=== PATIENT | male | born 1995 ===

== ENCOUNTER 2019-10-30 07:57 | Inpatient (IN) | payer OTHER ==
[~2019-10-30] VITALS: Ht 172.7 cm; Wt 65.7 kg
[2019-10-30] VITALS (447 sets, daily range): BP systolic 92–150; BP diastolic 56–119; PULSE 64–138; TEMP 97.2–98.6; O2SAT 79–100
[2019-10-30 08:21] LABS: COLLECTION METHOD IN
[2019-10-30 08:26] LABS: BASO # 0.1 (0.0-0.2); BASO % 0.5 % (0.0-2.0); GRAN # 10.5 (1.4-6.5); GRAN % 87.7 % (42.2-75.2); HEMATOCRIT 47.8 % (42.0-52.0); HEMOGLOBIN 16.2 g/dl (13.5-18.0); LYMPH # 0.9 (1.2-3.4); LYMPH % 7.7 % (20.0-51.0); MEAN CELL VOLUME 88 fl (80.0-100.0); MEAN CORPUSCULAR HEMOGLOBIN 30 pg (27.0-31.0); MEAN CORPUSCULAR HGB CONC 34 g/dl (33.0-37.0); MONO # 0.4 (0.1-0.6); MONO % 3.7 % (1.7-9.3); PLATELET COUNT 286 K/mm3 (130-400); RED BLOOD COUNT 5.43 M/mm3 (4.20-5.60); REDCELL DISTRIBUTION WIDTH-CV 12.2 % (11.5-14.5)
[2019-10-30 08:30] LABS: ALANINE AMINOTRANSFERASE 35 U/L (21-72); ALBUMIN 4.3 gm/dL (3.5-5.0); ALKALINE PHOSPHATASE 70 U/L (50-136); ANION GAP 13 mmol/L (7-16); AST,SGOT 16 U/L (15-37); BILIRUBIN,TOTAL 0.5 mg/dL (0.0-1.0); BLOOD UREA NITROGEN 13 mg/dL (9-20); CALCIUM 8.1 mg/dL (8.4-10.2); CARBON DIOXIDE 21 mmol/L (22-30); CHLORIDE 109 mmol/L (98-107); CREATININE, serum 0.98 (0.66-1.25); GLUCOSE 182 mg/dL (74-106); POTASSIUM 3.3 mmol/L (3.4-5.0); SODIUM 143 mmol/L (137-145)
[2019-10-30 08:31] LABS: ACETAMINOPHEN < 10 ug/mL (10-30); ALCOHOL(ethanol),MEDICAL < 10 mg/dL; SALICYLATE < 1.0 mg/dL
[2019-10-30 08:40] LABS: MUCOUS Present /lpf; PH 6 (5-8); SQUAMOUS EPITHELIAL None Seen /hpf; URINE APPEARANCE Hazy; URINE BACTERIA None Seen /hpf; URINE BILIRUBIN Negative (NEGATIVE); URINE BLOOD 1+ (NEGATIVE); URINE COLOR Yellow; URINE GLUCOSE Negative (NEGATIVE); URINE KETONE Trace (NEGATIVE); URINE LEUKOCYTE ESTERASE Negative (NEGATIVE); URINE NITRATE Negative (NEGATIVE); URINE PROTEIN(semi-quant) Negative (NEGATIVE); URINE UROBILINOGEN Negative (NEGATIVE)
[2019-10-30 09:00] LABS: TRICYCLIC ANTIDEPRESS URINE NEGATIVE
[2019-10-30 09:01] LABS: ARTERIAL BLD GAS O2 SATURATION 98.1 % (92-100); ARTERIAL BLD GAS TCO2 CT 20.9; ARTERIAL BLOOD GAS HCO3 19.9 meq/L (22-26); ARTERIAL BLOOD GAS PCO2 30.7 mmHg (35-45); ARTERIAL BLOOD GAS PO2 98.5 mmHg (80-100); ARTERIAL BLOOD GAS pH 7.43 (7.35-7.45)
--- NOTE | 2019-10-30 09:30 | NUR ---
Patient arrives from ED at this time. He has his eyes open but does not communicate with staff or track them with his eyes. He is not following commands. He is restless, picking at everything and nothing. Will continue to monitor.
--- NOTE | 2019-10-30 13:00 | NUR ---
Patient is more restless as the day progresses. Officer at bedside to assist in keeping patient in bed. He tries to get out of bed, pulls on lines and monitor cords and throws blankets off. He is reminded to lie back and try to sleep. He then lies down and is still for a couple minutes, only to become restless again. Will continue to monitor.
--- NOTE | 2019-10-30 17:25 | NUR ---
DR. SANCHES CALLED D/T INCREASED AGITATION. PATIENT CRAWLING OUT OF BED. PULLING AT LINES AND MONITOR WIRES. HE IS NOT FOLLOWING DIRECTION AND SWINGS OUT AT STAFF WHEN WE TRY TO HELP HIM BACK TO BED. RECENTLY GIVEN ATIVAN WITH NO HELP IN AGITATION. SHE GIVES ORDER FOR PRECEDEX, ICU STATUS, AND CONSULT DR. SARAVIA.
--- NOTE | 2019-10-30 18:27 | NUR ---
PATIENT IS RESTING COMFORTABLY AT AT THIS TIME. HE IS ON VERY LOW DOSE OF PRECEDEX. VS STABLE. RCPD OFFICER AT BEDSIDE.
--- NOTE | 2019-10-30 19:14 | NUR ---
REPORT GIVEN TO DIONISIO CHAWLA. PATIENT LYING IN BED WITH MITTS ON. RCPD OFFICER AT BEDSIDE. ALL LINES AND GTTS REVIEWED. CARE TURNED OVER AT THIS TIME.
--- NOTE | 2019-10-30 19:15 | NUR ---
Received report from DIONISIO Colon.
--- NOTE | 2019-10-30 23:30 | NUR ---
Patient became more alert following 1999 assessment. Patient was opening eyes spontaneously, followed commands, however, speech was still confused and slurred. Patient increasingly became more restless, evidenced by attempts to bite off mits and trying to sit up and scoot to the edge of bed. Began titrating precedex per orders at 2029. By 2229, patient's precedex was titrated to 0.7 mcg/kg/hr or 11.5 mL/hr. Patient is currently lightly sedated and resting quietly in bed. Vitals remain within normal limits. Will continue to monitor.
[2019-10-31] VITALS (875 sets, daily range): BP systolic 101–127; BP diastolic 61–90; PULSE 61–128; TEMP 97.3–98.5; O2SAT 69–100
[2019-10-31 04:35] LABS: HEMOGLOBIN 16.7 g/dl (13.5-18.0); MEAN CELL VOLUME 89 fl (80.0-100.0); MEAN CORPUSCULAR HEMOGLOBIN 30 pg (27.0-31.0); MEAN CORPUSCULAR HGB CONC 33 g/dl (33.0-37.0); MEAN PLATELET VOLUME 9.7 fl (7.4-10.4); PLATELET COUNT 313 K/mm3 (130-400); RED BLOOD COUNT 5.59 M/mm3 (4.20-5.60); REDCELL DISTRIBUTION WIDTH-CV 12.3 % (11.5-14.5)
[2019-10-31 04:41] LABS: CALCIUM 8.7 mg/dL (8.4-10.2); CREATININE, serum 0.79 (0.66-1.25); MAGNESIUM 2.5 mg/dL (1.6-2.3); POTASSIUM 4.3 mmol/L (3.4-5.0)
--- NOTE | 2019-10-31 04:48 | NUR ---
Patient resting quietly in bed. Has been compliant with cares without attempting to remove mits or monitoring equipment. Precedex titrated 0.1 mcg/kg/hr for sedation vacation. Patient is alert to self and situation; speech is clear. Ice chips offered and tolerated well. Progressed to small sips of water and then orange juice. Crackers offered and refused. Patient tolerated oral care and lab draws well. Protective mits removed at this time. Will continue to monitor.
[2019-10-31 06:12] LABS: BAND 4 % (0-10); EOSINOPHIL 2 % (0-4); LYMPHOCYTE 32 % (20.0-51.0); METAMYELOCYTE 2 % (0-0); NEUTROPHILS 55 % (42.0-75.2); PLATELET ESTIMATE NORMAL (NORMAL)
--- NOTE | 2019-10-31 07:39 | NUR ---
Report given to DIONISIO Green. Patient continues to rest quietly in bed. Vital signs within normal limits. No complaints of pain or discomfort noted at this time.
--- NOTE | 2019-10-31 10:40 | NUR ---
Nurse informed me I could not see this patient.
--- NOTE | 2019-10-31 13:37 | NUR ---
Pt awake and asking for a phone. Asked pt if he was aware of where he was and what happened. Pt stated he is in the hospital but doesn't know why he is here. Explained to pt that he took a bunch of pills and is currenlty in the hospital for a suicide attempt. Pt states "can the pills I took even kill me?" Explained to pt that without the correct treatment yes harm up to and including could occur. Also explained to pt that due to the nature of why he was in the hospital he was not allowed a phone. Pt asking about his . Explained that she was aware he was in the hospital at this time but was not allowed to visit. Pt nods understanding. Offered food and drink to pt but stated he wasn't hungry. Officer at bedside and also talked with pt informing him that he was currently in protective police custody. Pt again nods understanding. Asked pt if there was anything else I could answer for him or if I could get him anything else and he replies no. Will continue to follow.
--- NOTE | 2019-10-31 17:13 | NUR ---
SW received a call from patient's sister Anitra at [phone] who was concerned about the patients welfare. SW called to speak to patients nurse however she was not taking calls.
--- NOTE | 2019-10-31 19:22 | NUR ---
Report given to Tamela NICHOLE and care transfered.
--- NOTE | 2019-10-31 19:30 | NUR ---
Received report from DIONISIO Green.
--- NOTE | 2019-10-31 20:00 | NUR ---
Patient refused evening meal. Dietary provided a shake that the patient did accept after encouragement from staff. Ice water and crackers provided and refused. Will continue to monitor.
[2019-11-01] VITALS (13 sets, daily range): BP systolic 98–127; BP diastolic 66–87; PULSE 79–126; TEMP 97.7–98.4
[2019-11-01 06:01] LABS: BASO # 0.1 (0.0-0.2); BASO % 0.7 % (0.0-2.0); EOS # 0.1 (0.0-0.7); EOS % 0.8 % (0-4.0); GRAN # 7.6 (1.4-6.5); GRAN % 67.5 % (42.2-75.2); HEMOGLOBIN 17.1 g/dl (13.5-18.0); LYMPH # 2.7 (1.2-3.4); LYMPH % 24.2 % (20.0-51.0); MEAN CELL VOLUME 89 fl (80.0-100.0); MEAN CORPUSCULAR HEMOGLOBIN 30 pg (27.0-31.0); MEAN CORPUSCULAR HGB CONC 34 g/dl (33.0-37.0); MEAN PLATELET VOLUME 9.7 fl (7.4-10.4); MONO # 0.7 (0.1-0.6); MONO % 6.4 % (1.7-9.3); PLATELET COUNT 338 K/mm3 (130-400); RED BLOOD COUNT 5.76 M/mm3 (4.20-5.60); REDCELL DISTRIBUTION WIDTH-CV 12.2 % (11.5-14.5)
[2019-11-01 06:20] LABS: CALCIUM 9.1 mg/dL (8.4-10.2); CREATININE, serum 0.91 (0.66-1.25); POTASSIUM 3.9 mmol/L (3.4-5.0)
--- NOTE | 2019-11-01 07:14 | NUR ---
Report given to DIONISIO Green.
--- NOTE | 2019-11-01 07:53 | NUR ---
Report received from Tamela NICHOLE and care resumed. Pt resting upon assessment. Opens eyes to speech and answers all questions appropriately. Denies any pain. Pt asking if he can go home today. Explained to pt that he would have to talk to the medical dr and psych dr to develope a plan. Pt states understanding. No concerns at this time, will continue to follow.
--- NOTE | 2019-11-01 10:44 | NUR ---
Dr Sotomayor in to see pt at this time.
--- NOTE | 2019-11-01 14:00 | NUR ---
[facility] After talking with pt screener stated she did not feel pt would meet inpatient criteria at this time. I expressed my concerns to screener about the safety of the patient as well as pt's family. Officer who was present also expressing concerns. Screener stated she would discuss case with her animal maintenance supervisor and get back to us. Screener did call back with further questions for radio electronics officer. After further discussion, screener states she will work on paperwork to get pt placed involuntary. Will continue to follow.
--- NOTE | 2019-11-01 18:07 | NUR ---
Pt becoming more and more restless. Moving about in room. Entered to ask pt if I could get him something to calm him down. He states no that he is fine. Did quickly assess pt and found that pt had pulled out right hand IV. Asked pt if he pulled it out and he stated yes I didn't want it anymore. Pt given supper tray but refusing to eat or drink at this time.
--- NOTE | 2019-11-01 19:05 | NUR ---
Received bedside report from DIONISIO Geren. Patient is resting quietly in bed at this time. Denies presence of pain or discomfort. Vitals within normal limits. Will continue to monitor.
[2019-11-02] VITALS (351 sets, daily range): BP systolic 94–130; BP diastolic 59–84; PULSE 70–114; TEMP 97.4–98.2; O2SAT 65–100
[2019-11-02 06:44] LABS: BASO # 0.1 (0.0-0.2); BASO % 0.8 % (0.0-2.0); EOS # 0.2 (0.0-0.7); EOS % 1.9 % (0-4.0); GRAN # 6.6 (1.4-6.5); GRAN % 64.2 % (42.2-75.2); HEMATOCRIT 51.1 % (42.0-52.0); HEMOGLOBIN 17.3 g/dl (13.5-18.0); LYMPH # 2.6 (1.2-3.4); LYMPH % 25.4 % (20.0-51.0); MEAN CELL VOLUME 88 fl (80.0-100.0); MEAN CORPUSCULAR HEMOGLOBIN 30 pg (27.0-31.0); MEAN CORPUSCULAR HGB CONC 34 g/dl (33.0-37.0); MEAN PLATELET VOLUME 9.7 fl (7.4-10.4); MONO # 0.8 (0.1-0.6); MONO % 7.4 % (1.7-9.3); PLATELET COUNT 374 K/mm3 (130-400); RED BLOOD COUNT 5.81 M/mm3 (4.20-5.60)
[2019-11-02 06:49] LABS: CALCIUM 9.5 mg/dL (8.4-10.2); CREATININE, serum 0.88 (0.66-1.25); POTASSIUM 3.9 mmol/L (3.4-5.0)
--- NOTE | 2019-11-02 08:06 | NUR ---
Report given to DIONISIO Justice.
--- NOTE | 2019-11-02 08:10 | NUR ---
Report received from DIONISIO Rapp.
--- NOTE | 2019-11-02 08:11 | NUR ---
Assessment completed. Pt resting in bed easily arousable. Oriented x3. Pt calm, cooperative. Discussed plan of care with pt. Pt verbalized understanding. Denies any pain. Breakfast tray at bedside. VSS. Call light in reach.
--- NOTE | 2019-11-02 10:30 | NUR ---
Fax form sent to [facility] for psychiatric consult.
--- NOTE | 2019-11-02 11:14 | NUR ---
ATTEMPTED TO CALLBACK PT'S BUT PHONE IS OFF AND VOICEMAIL NOT SET UP.
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
--- NOTE | 2019-11-02 14:00 | NUR ---
Pt's called for update. Waiting for Dr Cotto to see pt at 1500 today. Pt's states she will call back at 1600 to find out if he will be going to another facility today.
--- NOTE | 2019-11-02 16:00 | NUR ---
Left message with [facility] for screener to call back.
--- NOTE | 2019-11-02 16:35 | NUR ---
lindsay Joaquin from [facility], called back. Updated on pt status. Will see pt today.
--- NOTE | 2019-11-02 17:37 | NUR ---
Jayme, from [facility], here to see ptNikhil
--- NOTE | 2019-11-02 18:30 | NUR ---
ALEXIS, FROM [facility], TALKED WITH PT'S OVER THE PHONE. GAVE PT'S SISTER INFORMATION FOR POINT OF CONTACT. KIMBERLYN ASKEW . WAITING FOR BED FROM [facility] OR [facility].
--- NOTE | 2019-11-02 19:15 | NUR ---
REPORT GIVEN TO DIONISIO KRAMER.
--- NOTE | 2019-11-02 19:45 | NUR ---
Patient assessment completed and charted at this time, please see documentation for details. Patient resting in bed, no issues to report. Patient remains in abdul gown, no longer in police custody. Patient agreeable to plan of care, have not heard from [facility] nicholaser on placement yet, did receive safety plan. Patient asked question "If I go as a voluntary, I can leave anytime I want after getting there, correct?" Nurse asked patient if he is still wanting treatment, and he states he does. Will continue to monitor.
[2019-11-03] VITALS (443 sets, daily range): BP systolic 116–141; BP diastolic 71–91; PULSE 66–91; TEMP 97.8–98; O2SAT 88–100
[2019-11-03 07:17] LABS: BASO # 0.1 (0.0-0.2); BASO % 0.8 % (0.0-2.0); EOS # 0.1 (0.0-0.7); EOS % 1.3 % (0-4.0); GRAN # 5.6 (1.4-6.5); GRAN % 61.4 % (42.2-75.2); LYMPH # 2.6 (1.2-3.4); LYMPH % 28.1 % (20.0-51.0); MEAN CELL VOLUME 87 fl (80.0-100.0); MEAN CORPUSCULAR HGB CONC 34 g/dl (33.0-37.0); MONO # 0.7 (0.1-0.6); MONO % 8.1 % (1.7-9.3); PLATELET COUNT 404 K/mm3 (130-400); RED BLOOD COUNT 6.17 M/mm3 (4.20-5.60); REDCELL DISTRIBUTION WIDTH-CV 11.9 % (11.5-14.5)
[2019-11-03 07:21] LABS: HEMATOCRIT 53.6 % (42.0-52.0); HEMOGLOBIN 18.2 g/dl (13.5-18.0); MEAN CORPUSCULAR HEMOGLOBIN 29 pg (27.0-31.0)
[2019-11-03 07:29] LABS: CREATININE, serum 0.93 (0.66-1.25); MAGNESIUM 2.3 mg/dL (1.6-2.3); POTASSIUM 4.5 mmol/L (3.4-5.0)
--- NOTE | 2019-11-03 07:30 | NUR ---
Report recieved from DIONISIO Scott - care assumed at this time - pt to transfer to [facility]. Pt updated on room transfer, pt wishes to sleep until at least 0800 before ambulating to new room.
--- NOTE | 2019-11-03 08:30 | NUR ---
Pt's wishes have not changed, pt still wishes to obtain psychiatric care via Voluntary route. MD Yadiel contacted regarding note that was imputed this morning stating that she recommends involuntary - MD aware that pt is requsting Voluntary.
--- NOTE | 2019-11-03 13:04 | NUR ---
DIONISIO Chu from [facility] called in - update provided, recent vitals, pt's demeanor, channing and weight provided. Estimated time for bed availability is tomorrow at the earliest - per DIONISIO Chu
--- NOTE | 2019-11-03 15:21 | NUR ---
Telephone report provided to DIONISIO Peterson at [facility] - pt will be going to room 153-1
--- NOTE | 2019-11-03 16:00 | NUR ---
Pt escorted out by [employer] - 3 bags that pt's former girlfriend dropped off and searched by security team with pt, no belongings left behind. Pt cooperative and quiet
== END 2019-11-03 16:08 | DRG 917 ==
LOC: COL.ER 07:57 → ICU 08:38 → EDBD 08:38 → IMCU 11-03 10:03
PROVIDERS: Emergency Medicine; Physician Assistant; ADMIT Family Medicine
DX: T45.0X2A Poisoning by antiallergic and antiemetic drugs, intentional self-harm, initial encounter (principal); G92 Toxic encephalopathy; E87.6 Hypokalemia; D72.829 Elevated white blood cell count, unspecified; R00.0 Tachycardia, unspecified; F43.20 Adjustment disorder, unspecified
CPT/HCPCS: 99222-AI; 99232-AI; 99239; A4314; J1650; J2060; J3475; J3480; J7030